=== PATIENT | female | born 1965 | race African-American/Black ===

== ENCOUNTER 2017-03-11 18:57 | Inpatient (IN) | payer MEDICAID ==
[~2017-03-11] VITALS: Ht 162.6 cm; Wt 77.6 kg
[~2017-03-11 18:57] MED LIST: ACET-8386 PO; AMLO5TAB PO; DOCU-299 PO; FERR-142 PO; METO-50 PO
[2017-03-11 19:19] VITALS: BP 163/122
--- NOTE | 2017-03-11 20:00 | NUR ---
Patient ambulated to bed 3. RN evaluating patient at bedside.
--- NOTE | 2017-03-11 20:52 | NUR ---
Dr. Mcadams evaluating patient at bedside.
[2017-03-11] MEDS ORDERED: NACL 0.9% 1,000 ML IV SCH (20:56)
[2017-03-11] MEDS ORDERED: METOCLOPRAMIDE 10 MG/2 ML INJ VIAL IVP ONE (21:00)
[2017-03-11] MEDS ORDERED: FAMOTIDINE 20 MG/2 ML VIAL IVP ONE (21:00)
[2017-03-11] MEDS ORDERED: KETOROLAC 30 MG/ML VIAL IVP ONE (21:00)
[2017-03-11] MEDS ORDERED: HYDROmorphone PFS 2 MG/ML SYR IVP ONE (21:00)
[2017-03-11] MEDS ORDERED: ONDANSETRON 4 MG/2 ML VIAL IVP ONE (21:00)
[2017-03-11 21:29] LABS: BASOPHILS # (AUTO) 0.2 K/uL (0.00-0.22); HEMATOCRIT 42.7 % (36-48); HEMOGLOBIN 14.1 g/dL (12.0-16.0); MEAN CORPUSCULAR HEMOGLOBIN 35 pg (27-31); MEAN CORPUSCULAR HGB CONC 33 g/dL (33-37); MEAN CORPUSCULAR VOLUME 107 fL (80-94); MONOCYTES # (AUTO) 0.3 K/uL (0.8-1.0); NEUTROPHILS # (AUTO) 2.3 K/uL (1.8-7.7); PLATELET COUNT (AUTO) 202 K/uL (140-450); RED BLOOD CELL COUNT(AUTO) 4.01 MIL/uL (4.20-5.40); RED CELL DISTRIBUTION WIDTH 14.4 % (11.6-13.7); WHITE BLOOD COUNT (AUTO) 3.9 K/uL (4.8-10.8)
--- NOTE | 2017-03-11 21:31 | NUR ---
51Y/F PT.PRESENTS TO ED WITH C/O ABDOMINAL PAIN X 1 WK. PT. WAS SEEN BY ER MD ON FOR PANCREATITIS. HX. HTN. AAO X4, AMBULATORY WITH STEADY GAIT. RESPIRATIONS ROOM AIR, EVEN AND UNLABORED. ABDOMEN SOFT, NONTENDER, ACTIVE BS X4. C/O PAIN 10/10, VS, BP ELEVATEDN ASYMTOMATIC. DR. BULLARD MADE AWARE.
[2017-03-11] MEDS ORDERED: cloNIDine 0.1 MG TAB PO ONE (21:35)
--- NOTE | 2017-03-11 21:43 | NUR ---
US AT BEDSIDE
[2017-03-11 21:46] LABS: ANION GAP 13.8 (8-16); CREATININE 0.9 mg/dL (0.6-1.3); POTASSIUM 3.8 mmol/L (3.5-5.1)
[2017-03-11 21:52] LABS: ALBUMIN 2.9 g/dL (3.4-5.0); TOTAL BILIRUBIN 1.2 mg/dL (0.0-1.0)
[2017-03-11 21:57] LABS: APPEARANCE,URINE CLEAR (CLEAR); BILIRUBIN,URINE 2+ (NEGATIVE); BLOOD, URINE NEGATIVE (NEGATIVE); LEUKOCYTE ESTERASE ,URINE NEGATIVE (NEGATIVE); NITRITE, URINE NEGATIVE (NEGATIVE); UGLUCOSE NEGATIVE (NEGATIVE)
[2017-03-11 22:03] LABS: COLOR,URINE AMBER (YELLOW)
[2017-03-11] MEDS ORDERED: METOPROLOL 5 MG/5 ML VIAL IVP ONE (22:25)
--- NOTE | 2017-03-11 22:58 | NUR ---
senior technical project manager at bedside.
[2017-03-11] MEDS ORDERED: ENALAPRILAT 2.5 MG/2 ML VIAL IVP ONE (23:30)
[2017-03-12] MEDS ORDERED: DEXT 5% / NACL 0.45% 500 ML IV ONE (00:25)
--- NOTE | 2017-03-12 01:02 | NUR ---
PT. RESTING IN BED, NO DISTRESS AT THIS TIME. BP 160/105, HR 60, ER MADE AWARE.
[2017-03-12 01:30] VITALS: BP 159/105
--- NOTE | 2017-03-12 01:30 | NUR ---
PT ARRIVED IN UNIT VIA GURNEY, PT STABLE, NO DISTRESS NOTED, STATED HAVING NO PAIN AT THIS MOMENT, RECEIVED BEDSIDE REPORT FROM ER NURSE, IV TO R AC 20G SL, PATENT, SKIN INTACT, ORIENT PT TO UNIT, INITIAL ASSESSMENT DONE, ALL SAFETY PRECAUTION MET, CALL LIGHT WITHIN REACH, WILL CONTINUE TO MONITOR.
--- NOTE | 2017-03-12 01:45 | NUR ---
Patient will be admitted to care of DR. DE LUNA. Admited to TELEMETRY. Will go to room 104B. Belongings list completed. Report to GENESIS GEORGE.
[2017-03-12] MEDS ORDERED: ONDANSETRON 4 MG/2 ML VIAL IVP PRN (01:50)
[2017-03-12] MEDS ORDERED: ACETAMINOPHEN 325 MG TAB PO PRN (01:50)
[2017-03-12] MEDS ORDERED: KETOROLAC 30 MG/ML VIAL IVP PRN (01:55)
[2017-03-12 02:15] LABS: BARBITURATE, URINE NEG. ng/ml (NEG <=200); BENZODIAZEPINE, URINE NEG. ng/mL (NEG <=200); CANNABINOID, URINE NEG. ng/mL (NEG <=50); COCAINE, URINE POS. ng/mL (NEG <=300); OPIATE, URINE NEG. ng/mL (NEG <=2000); PHENCYCLIDINE SCREEN,URINE NEG. ng/mL (NEG <=25)
[2017-03-12 02:24] LABS: CHOL/HDL RATIO 4.5 (1-4.5); FREE T4 (FREE THYROXINE) 0.88 ng/dL (0.76-1.46); MAGNESIUM 1.7 mg/dL (1.8-2.4); PHOSPHORUS 3.7 mg/dL (2.5-4.9); THYROID STIMULATING HORMONE 1.91 uIU/mL (0.34-3.74)
[2017-03-12] MEDS: NACL 0.9% 1,000 ML IV SCH ×5 (02:30→23:47)
[2017-03-12] MEDS ORDERED: MAG SULF 2000 MG/WATER PREMIX 50 ML IV ONE (02:50)
[2017-03-12 04:00] VITALS: BP 150/102
[2017-03-12] MEDS: LORazepam 1 MG TAB PO SCH ×3 (04:29→21:45)
--- NOTE | 2017-03-12 04:33 | NUR ---
DUE MEDICATION GIVEN, PT TOLERATED WELL, NO DISTRESS NOTED, CALL LIGHT WITHIN REACH, WILL CONTINUE TO MONITOR.
--- NOTE | 2017-03-12 06:19 | NUR ---
PT SLEEPING, NO DISTRESS NOTED, CALL LIGHT WITHIN REACH, WILL CONTINUE TO MONITOR.
--- NOTE | 2017-03-12 07:01 | NUR ---
GAVE BEDSIDE REPORT TO DAY SHIFT NURSE HARPAL HURTADO, ENDORSED PLAN OF CARE, PT STABLE, NO DISTRESS NOTED, CALL LIGHT WITHIN REACH.
--- NOTE | 2017-03-12 07:02 | NUR ---
RECEIVED REPORT FROM NIGHT RN, PT AWAKE IN BED ON RA, PLAN OF CARE DISCUSSED WITH PT, PT VERBALIZED UNDERSTANDING, IV PATENT AND INTACT, PT DENIES PAIN, NO S/S OF ACUTE DISTRESS, PT A/OX4, SAFETY PRECAUTIONS TAKEN, CALL LIGHT WITHIN REACH, WILL CONT TO MONITOR.
[2017-03-12 07:39] LABS: BASOPHILS # (AUTO) 0.2 K/uL (0.00-0.22); BASOPHILS % (AUTO) 4.2 % (0.0-2.0); EOSINOPHILS % (AUTO) 0.8 % (0.0-4.0); HEMATOCRIT 39.9 % (36-48); HEMOGLOBIN 13.2 g/dL (12.0-16.0); LYMPHOCYTES # (AUTO) 1.9 K/uL (2.5-16.5); LYMPHOCYTES % (AUTO) 43.5 % (20.5-51.1); MEAN CORPUSCULAR HEMOGLOBIN 35 pg (27-31); MEAN CORPUSCULAR HGB CONC 33 g/dL (33-37); MEAN CORPUSCULAR VOLUME 106 fL (80-94); MONOCYTES # (AUTO) 0.5 K/uL (0.8-1.0); MONOCYTES % (AUTO) 12.5 % (1.7-9.3); NEUTROPHILS # (AUTO) 1.6 K/uL (1.8-7.7); PLATELET COUNT (AUTO) 234 K/uL (140-450); RED BLOOD CELL COUNT(AUTO) 3.76 MIL/uL (4.20-5.40); RED CELL DISTRIBUTION WIDTH 14.7 % (11.6-13.7); WHITE BLOOD COUNT (AUTO) 4.2 K/uL (4.8-10.8)
[2017-03-12 08:00] VITALS: BP 127/91
[2017-03-12] MEDS ORDERED: LIDOCAINE VISCOUS 2% 20 ML UDC PO SCH (08:00)
[2017-03-12] MEDS ORDERED: DICYCLOMINE HCL LIQUID 10 MG/5 ML UDC PO SCH (08:00)
[2017-03-12] MEDS ORDERED: ALUMINUM HYD/MAG/SIMETHICONE 30 ML UDC PO SCH (08:00)
[2017-03-12 08:36] LABS: ANION GAP 12.3 (8-16); CARBON DIOXIDE 25.4 mmol/L (21-32); CREATININE 0.8 mg/dL (0.6-1.3); POTASSIUM 3.7 mmol/L (3.5-5.1)
[2017-03-12 08:37] LABS: PHOSPHORUS 3.7 mg/dL (2.5-4.9)
[2017-03-12] MEDS: amLODIPine 5 MG TAB PO SCH (08:45)
[2017-03-12] MEDS: MULTIVITAMIN 1 TAB PO SCH (08:45)
[2017-03-12] MEDS: FOLIC ACID 1 MG TAB PO SCH (08:45)
[2017-03-12] MEDS: DOCUSATE SODIUM 100 MG GELCAP PO SCH ×2 (08:45→21:44)
[2017-03-12] MEDS: THIAMINE 100 MG TAB PO SCH (08:45)
[2017-03-12] MEDS: METOPROLOL 50 MG TAB PO SCH ×2 (08:46→21:45)
--- NOTE | 2017-03-12 08:50 | NUR ---
DUE MEDICATIONS GIVEN WITH EDUCATION, PT VERBALIZED UNDERSTANDING, PT TOLERATED MEDS WELL, WILL CONT TO MONITOR.
--- NOTE | 2017-03-12 09:17 | NUR ---
PATIENT HAS BEEN SCREENED AND CATEGORIZED MODERATE NUTRITION RISK. PATIENT WILL BE SEEN WITHIN 3-5 DAYS OF ADMISSION. 03/14/17-03/16/[address]
[2017-03-12] MEDS: SENNA 8.6 MG TAB PO SCH ×2 (12:28→17:22)
--- NOTE | 2017-03-12 12:49 | NUR ---
PT AWAKE IN BED ON RA, PT DENIES PAIN, PT SHOWS NO S/S OF ACUTE DISTRESS, PT HAS SCDS ON, WILL CONT TO MONITOR.
[2017-03-12 16:00] VITALS: BP 129/88
[2017-03-12] MEDS: HYDROcodone/APAP 7.5/325 MG 1 TAB PO PRN (18:41)
--- NOTE | 2017-03-12 19:16 | NUR ---
REPORT GIVEN TO NIGHT RN, PT IN STABLE CONDITION.
--- NOTE | 2017-03-12 19:17 | NUR ---
RECEIVED HANDOFF REPORT FROM AM RN. PATIENT A&OX4. PATIENT DENIES PAIN. IV SITE PATENT AND INTACT. NO SIGNS OR SYMPTOMS OF ACUTE DISTRESS NOTED. CALL LIGHT WITHIN REACH. WILL CONTINUE TO MONITOR.
[2017-03-12] MEDS ORDERED: LACTULOSE 20 GM/30 ML UDC PO SCH (21:00)
--- NOTE | 2017-03-12 21:15 | NUR ---
PATIENT STATES CONGESTION IN NASAL CAVITY. WILL MEDICATE ORDERED.
[2017-03-12] MEDS ORDERED: guaiFENesin 20 MG/ML UDC PO PRN (21:20)
[2017-03-13] VITALS: BP 137/86
--- NOTE | 2017-03-13 00:56 | NUR ---
PATIENT RESTING IN BED. PATIENT DENIES PAIN. NO SIGNS OR SYMPTOMS OF ACUTE DISTRESS NOTED. CALL LIGHT WITHIN REACH. WILL CONTINUE TO MONITOR.
--- NOTE | 2017-03-13 03:30 | NUR ---
PATIENT FOUND IN HALLWAY UNSTEADY AND CONFUSED. PATIENT A&OX3. BP 151/99 HR 68 O2 96 TEMP 97.7 RR 18 PAIN 0/10. RR ARE NON LABORED AND SYMMETRICAL. PATIENT SOILED HERSELF. CHANGED PATIENT AND INITIATED FALL RISK PROTOCOL. CHARGE NURSE AND MD BOTH MADE AWARE.
--- NOTE | 2017-03-13 03:35 | NUR ---
MD IN TO SEE PATIENT FOR FURTHER ASSESSMENT. CALL LIGHT WITHIN REACH. WILL CONTINUE TO MONITOR.
[2017-03-13] MEDS: LORazepam 1 MG TAB PO SCH ×2 (04:47→12:39)
--- NOTE | 2017-03-13 04:50 | NUR ---
ATIVAN HELD DUE TO PATIENTS ORIENTATION. MD MADE AWARE. WILL CONTINUE TO MONITOR.
--- NOTE | 2017-03-13 07:17 | NUR ---
ENDORSED PLAN OF CARE TO AM RN. PATIENT INSTABLE CONDITION
--- NOTE | 2017-03-13 07:22 | NUR ---
RECEIVED PT IN BED. AWAKE. ALERT ORIENTED X3. NO SOB NOTED. DENIES ANY PAIN OR DISCOMFORT AT THIS TIME. PT AMBULATORY. SAFETY PRECAUTION IN PLACE. CALL LIGHT WITHIN REACH.
[2017-03-13 08:00] VITALS: BP 169/100
[2017-03-13 08:08] LABS: HEMATOCRIT 39.4 % (36-48); HEMOGLOBIN 13.2 g/dL (12.0-16.0); MEAN CORPUSCULAR HEMOGLOBIN 36 pg (27-31); MEAN CORPUSCULAR HGB CONC 33 g/dL (33-37); MEAN CORPUSCULAR VOLUME 107 fL (80-94); PLATELET COUNT (AUTO) 175 K/uL (140-450); RED BLOOD CELL COUNT(AUTO) 3.67 MIL/uL (4.20-5.40); RED CELL DISTRIBUTION WIDTH 14.3 % (11.6-13.7); WHITE BLOOD COUNT (AUTO) 3.5 K/uL (4.8-10.8)
[2017-03-13 08:13] LABS: ANION GAP 11.3 (8-16); CARBON DIOXIDE 27.1 mmol/L (21-32); CREATININE 0.9 mg/dL (0.6-1.3); POTASSIUM 3.4 mmol/L (3.5-5.1)
[2017-03-13] MEDS: DOCUSATE SODIUM 100 MG GELCAP PO SCH (08:18)
[2017-03-13] MEDS: amLODIPine 5 MG TAB PO SCH (08:19)
[2017-03-13] MEDS: MULTIVITAMIN 1 TAB PO SCH (08:19)
[2017-03-13] MEDS: FOLIC ACID 1 MG TAB PO SCH (08:19)
[2017-03-13] MEDS: SENNA 8.6 MG TAB PO SCH ×2 (08:19→12:39)
[2017-03-13] MEDS: THIAMINE 100 MG TAB PO SCH (08:19)
[2017-03-13] MEDS: HYDROcodone/APAP 7.5/325 MG 1 TAB PO PRN (08:20)
[2017-03-13] MEDS: METOPROLOL 50 MG TAB PO SCH (08:20)
[2017-03-13] MEDS ORDERED: ALUMINUM HYD/MAG/SIMETHICONE 30 ML UDC PO PRN (08:25)
[2017-03-13 08:28] LABS: MAGNESIUM 1.8 mg/dL (1.8-2.4); PHOSPHORUS 3.1 mg/dL (2.5-4.9)
[2017-03-13] MEDS ORDERED: DICYCLOMINE HCL LIQUID 10 MG/5 ML UDC PO SCH (08:48)
[2017-03-13] MEDS ORDERED: LIDOCAINE VISCOUS 2% 20 ML UDC PO SCH (08:48)
[2017-03-13] MEDS ORDERED: POTASSIUM CHLORIDE 10 MEQ TABER PO SCH (09:00)
[2017-03-13] MEDS ORDERED: ATORVASTATIN 20 MG TAB PO SCH (09:00)
[2017-03-13] MEDS ORDERED: FLUTICASONE NASAL 50 MCG/ACTUATION 16 GM BTL NS SCH (09:00)
[2017-03-13 09:35] LABS: EOSINOPHILS % (MANUAL) 3 % (0-4); LYMPHOCYTES % (MANUAL) 27 % (20-46); MONOCYTES % (MANUAL) 10 % (5-12)
--- NOTE | 2017-03-13 10:03 | NUR ---
PT FELL ASLEEP AT THIS TIME. AROUSABLE TO VOICE. VERBALIZED RELIEF FROM PAIN AT THIS TIME. WENT BACK TO SLEEP.
--- NOTE | 2017-03-13 10:27 | NUR ---
CM NOTE REVIEW FAXED TO [facility] [phone] GUERO MENDOZA PH# [phone] EXT [phone] AND TO [facility] [phone] PH# [phone]. PER GUERO MENDOZA OF [facility] PH# [phone] EXT [phone], [facility] IS AT RISK AND TO CONTACT HER FOR ANY SNF OR HH NEEDS AND TO CONTACT [facility] FOR ANY DME NEEDS.
[2017-03-13] MEDS: NACL 0.9% 1,000 ML IV SCH (12:39)
[2017-03-13] MEDS ORDERED: ATOR20TA40 PO (15:45)
[2017-03-13] MEDS ORDERED: SENN-89 PO ×2 (15:45→15:51)
[2017-03-13 15:56] VITALS: BP 137/95
--- NOTE | 2017-03-13 16:44 | NUR ---
CALLED PERSON TO NOTIFY MUNIRA PORTER AT [phone] NO ANSWER, LEFT MESSAGE VIA VOICE MAILBOX. AWAITING CALL BACK REGARDING PT DISCHARGE.
--- NOTE | 2017-03-13 16:54 | NUR ---
DISCHARGE INSTRUCTIONS AND HEALTH TEACHINGS GIVEN AND EXPLAINED TO PT. PT VERBALIZED UNDERSTANDING. AND SIGNED DISCHARGE PAPERS. REMINDED TO FOLLOW UP WITH PCP FOR THE SCHEDULED APPOINTMENT. PT PROVIDED A COPY OF DISCHARGE PAPERS. IV CANNULA REMOVED AND INTACT. AWAITING MUNIRA PORTER'S CALL BACK, TO [employer] CONSULTANT PT.
--- NOTE | 2017-03-13 17:10 | NUR ---
VARSHA (PT'S SIGNIFICANT OTHER) CAME TO EXCAVATING MACHINE OPERATOR PT. NAME ARMBAND REMOVED. NO SOB NOTED. DENIES ANY PAIN OR DISCOMFORT AT THIS TIME.PT WHEELED OUT GOING TO THE HOSPITAL PARKING LOT TO THEIR PRIVATE OWNED. PT DISCHARGED ON STABLE CONDITION.
[2017-03-13] MEDS ORDERED: SENNA 8.6 MG TAB PO SCH (21:00)
== END 2017-03-13 17:10 | disposition home or self-care (01) | DRG 282 ==
LOC: MED 18:57 → MTU 03-12 01:15
PROVIDERS: ADMIT Family Medicine; ATTEND Family Medicine
DX: K85.20 Alcohol induced acute pancreatitis without necrosis or infection (principal); N17.0 Acute kidney failure with tubular necrosis; I16.0 Hypertensive urgency; E44.0 Moderate protein-calorie malnutrition; E83.42 Hypomagnesemia; F10.20 Alcohol dependence, uncomplicated; I10 Essential (primary) hypertension; E78.2 Mixed hyperlipidemia; E87.1 Hypo-osmolality and hyponatremia; K59.09 Other constipation; E87.6 Hypokalemia; F12.10 Cannabis abuse, uncomplicated; F14.10 Cocaine abuse, uncomplicated; R74.0 Nonspecific elevation of levels of transaminase and lactic acid dehydrogenase [LDH]; E80.6 Other disorders of bilirubin metabolism; F17.210 Nicotine dependence, cigarettes, uncomplicated; Z68.29 Body mass index [BMI] 29.0-29.9, adult; Z90.710 Acquired absence of both cervix and uterus; Z91.19 Patient's noncompliance with other medical treatment and regimen
CPT/HCPCS: 36415; 70450; 71010; 76700; 80048; 80053; 80305; 81003; 81025; 82140; 82150; 83036; 83605; 83690; 83735; 83880; 84100; 84439; 84443; 84484; 85025; 85610; 85730; 87081; 87086; 93005; 93976; 96361; 96374; 96375; 99285; G0482; J1170; J1885; J2405; J2765; J3475; J3490; J7030; Q0092

== ENCOUNTER 2022-03-11 16:45 | Emergency (ER) | payer MEDICAID ==
[~2022-03-11] VITALS: Ht 170.2 cm; Wt 81.6 kg
[~2022-03-11 16:45] MED LIST changes: -ACET-8386 PO; +ATOR20TA40 PO; +METO-251 PO; -METO-50 PO; +SENN-74 PO
--- NOTE | 2022-03-11 17:01 | NUR ---
56 y/o female biba from [facility] with other vehicle. pt denies any pain at this time. pt is yelling and combative with medics, unable to obtain bp after 5 attempts on arm and legs. pt refusing to give any other information of assessment. pmh: unable to obtain nka
--- NOTE | 2022-03-11 17:10 | NUR ---
Patient discharged with v/s stable. Written and verbal after care instructions given and explained. Patient verbalized understanding. pt with Police in custody. All questions addressed prior to discharge. Advised to follow up with PMD.
== END 2022-03-11 17:10 ==
LOC: MED 16:45
DX: F10.129 Alcohol abuse with intoxication, unspecified (principal); I10 Essential (primary) hypertension; Z79.899 Other long term (current) drug therapy; Y90.9 Presence of alcohol in blood, level not specified
CPT/HCPCS: 99283